=== PATIENT | male | born 1995 | race Caucasian/White ===

== ENCOUNTER 2022-07-06 12:48 | Emergency (ER) | payer OTHER ==
[2022-07-06] MEDS ORDERED: Lidocaine 1% with EPINEPHrine 1:100,000 20 ML MDV INJECT ONE (12:56)
== END 2022-07-06 13:38 | disposition home or self-care (01) ==
LOC: DL.ED 12:48
DX: S01.81XA Laceration without foreign body of other part of head, initial encounter (principal); W00.0XXA Fall on same level due to ice and snow, initial encounter
CPT/HCPCS: 12013; 99282; J3490